=== PATIENT | male | born 1945 | race Caucasian/White ===

== ENCOUNTER → 2019-12-30 | Outpatient (CLI) | payer MEDICARE, OTHER | LOC: CARD 09:00 | PROVIDERS: ATTEND Internal Medicine Cardiovascular Disease | DX: I08.0 Rheumatic disorders of both mitral and aortic valves (principal); I48.0 Paroxysmal atrial fibrillation; E78.2 Mixed hyperlipidemia; E66.9 Obesity, unspecified | CPT/HCPCS: 93225; 93226; 93306 ==

== ENCOUNTER 2020-10-14 08:54 | Emergency (ER) | payer MEDICARE, OTHER ==
[2020-10-14 09:24] LABS: BASOPHILS % (AUTO) 0 % (0-10); EOSINOPHILS % (AUTO) 0 % (0-10); HEMATOCRIT 38 % (40-54); HEMOGLOBIN 12.5 G/DL (13.3-17.7); LYMPHOCYTES % (AUTO) 9 % (12-44); MEAN CORPUSCULAR HEMOGLOBIN 27 PG (25-34); MEAN CORPUSCULAR HGB CONC 33 G/DL (32-36); MEAN CORPUSCULAR VOLUME 83 FL (80-99); MEAN PLATELET VOLUME 9.6 FL (7.4-10.4); MONOCYTES # (AUTO) 1.2 X 10^3 (0.0-1.0); MONOCYTES % (AUTO) 11 % (0-12); NEUTROPHILS # (AUTO) 8.8 X 10^3 (1.8-7.8); NEUTROPHILS % (AUTO) 79 % (42-75); PLATELET COUNT 461 10^3/uL (130-400); WHITE BLOOD COUNT 11.1 10^3/uL (4.3-11.0)
[2020-10-14 09:43] LABS: ALANINE AMINOTRANSFERASE 77 U/L (0-55); ALBUMIN 3.6 GM/DL (3.2-4.5); ALKALINE PHOSPHATASE 175 U/L (40-136); BILIRUBIN,TOTAL 1.2 MG/DL (0.1-1.0); BUN/CREATININE RATIO 21; CARBON DIOXIDE 25 MMOL/L (21-32); CHLORIDE 92 MMOL/L (98-107); CREATININE SERUM 0.97 MG/DL (0.60-1.30); GFR ESTIMATED > 60; GLUCOSE 117 MG/DL (70-105); POTASSIUM 4.7 MMOL/L (3.6-5.0); SODIUM 127 MMOL/L (135-145); TOTAL PROTEIN 6.8 GM/DL (6.4-8.2)
--- NOTE | 2020-10-14 09:55 | Diagnostic Imaging Report ---
EXAMINATION: Chest 1 view HISTORY: Shortness of breath COMPARISON: None available. FINDINGS: Heart is moderately enlarged. Left subclavian pacemaker is present. There are tiny bilateral pleural effusions. No pneumothorax. No edema. IMPRESSION: 1. Mildly enlarged heart with tiny pleural effusions. Dictated by: Dictated on workstation # [id number]
[2020-10-14] MEDS ORDERED: FUROSEMIDE 40 MG/4 ML INJ (LASIX) IVP ONE (10:15)
--- NOTE | 2020-10-14 10:41 | ED Cardiac General ---
History of Present Illness General Chief Complaint: Cardiac/General Problems Stated Complaint: WEAKNESS | SOB Nursing Triage Note: Had a OR in May with 1 stent placed. Had a pacer/icd placed September 27 and had some complications with bleeding. Since having that placed has been weak and short of breath. 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 Symptoms have worsened where he cannot walk more than 10 feet. Source: patient Exam Limitations: no limitations History of Present Illness Date Seen by Provider: Oct 14, 2020 Time Seen by Provider: 09:00 Initial Comments Patient is a 75-year-old male with history of CAD, chronic atrial fibrillation, cardiomyopathy with AICD placement with recent hospitalization for the same who presents with progressive shortness of breath over the past 2 weeks. Patient reports orthopnea and intermittent nocturnal dyspnea. He reports dyspnea with mild exertion. He denies chest pain chest tightness. He does endorse nausea and sweats. Denies abdominal pain or discomfort. Reports increased l fluid retention and bilateral leg swelling. Denies history of CHF. Patient states he is not currently prescribed a diuretic. He has previously been on Xarelto for treatment of A. fib but has had that held since his IACD due to anemia. No history of DVT or PE. No other acute symptoms or complaints. 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 Timing/Duration: 1 week, getting worse Severity: moderate Location: other Activities at Onset: other Prior CP/Workup: other Modifying Factors: improves with other NTG SL INTERNET MERCHANT: No ASA po INTERNET MERCHANT: No Associated Systoms: Nausea/Vomiting, Shortness of Air Allergies and Home Medications Allergies Coded Allergies: No Known Drug Allergies (Unverified , 10/14/20) Patient Home Medication List Home Medication List Reviewed: Yes Review of Systems Review of Systems Constitutional: see HPI EENTM: See HPI Respiratory: See HPI Cardiovascular: See HPI Gastrointestinal: See HPI Genitourinary: See HPI Musculoskeletal: see HPI Skin: see HPI Psychiatric/Neurological: See HPI Endocrine: See HPI Hematologic/Lymphatic: See HPI All Other Systems Reviewed Negative Unless Noted: Yes Past Zqyxhkh-Dhbxzq-Sygxzr Hx Past Med/Social Hx: Reviewed Nursing Past Med/Soc Hx Patient Social History Alcohol Use: Denies Use Smoking Status: Never a Smoker 2nd Hand Smoke Exposure: No Recent Infectious Disease Expo: No Recent Hopitalizations: No Seasonal Allergies Seasonal Allergies: No Past Medical History Surgeries: Yes (icd; hernia; ) Coronary Stent, Orthopedic, Pacemaker, Transurethral Resection Cardiac: Yes Heart Attack, Hypertension Neurological: No Genitourinary: Yes Benign Prostatic Hyperpl Gastrointestinal: Yes (GI bleed ) Musculoskeletal: No Endocrine: No HEENT: No Cancer: No Psychosocial: No Integumentary: No Blood Disorders: No Adverse Reaction/Blood Tranf: No Physical Exam Vital Signs Vital Signs - First Documented 10/14/20 08:59 Temp 36.3 Pulse 101 Resp 18 B/P (MAP) 153/107 (122) Pulse Ox 97 Capillary Refill : Less Than 3 Seconds Height, Weight, BMI Height: '" Weight: lbs. oz. kg; BMI Method: General Appearance: No Apparent Distress, Other (Tachypneic, fatigued and weak appearing.) HEENT: PERRL/EOMI, Pharynx Normal, Moist Mucous Membranes Neck: Full Range of Motion, Non Tender, Supple Respiratory: Chest Non Tender, No Accessory Muscle Use, No Respiratory Distress, Other Cardiovascular: Irregularly Irregular, Other Gastrointestinal: Normal Bowel Sounds, Non Tender, Soft Neurologic/Psychiatric: Alert, Oriented x3 Skin: Normal Color Focused Exam Sepsis Stage: Ruled Out Progress/Results/Core Measures Results/Orders Lab Results Laboratory Tests Test 10/14/20 09:15 Range/Units White Blood Count 11.1 H 4.3-11.0 10^3/uL Red Blood Count 4.56 4.35-5.85 10^6/uL Hemoglobin 12.5 L 13.3-17.7 G/DL Hematocrit 38 L 40-54 % Mean Corpuscular Volume 83 80-99 FL Mean Corpuscular Hemoglobin 27 25-34 PG Mean Corpuscular Hemoglobin Concent 33 32-36 G/DL Red Cell Distribution Width 16.4 H 10.0-14.5 % Platelet Count 461 H 130-400 10^3/uL Mean Platelet Volume 9.6 7.4-10.4 FL Immature Granulocyte % (Auto) 0 % Neutrophils (%) (Auto) 79 H 42-75 % Lymphocytes (%) (Auto) 9 L 12-44 % Monocytes (%) (Auto) 11 0-12 % Eosinophils (%) (Auto) 0 0-10 % Basophils (%) (Auto) 0 0-10 % Neutrophils # (Auto) 8.8 H 1.8-7.8 X 10^3 Lymphocytes # (Auto) 1.0 1.0-4.0 X 10^3 Monocytes # (Auto) 1.2 H 0.0-1.0 X 10^3 Eosinophils # (Auto) 0.0 0.0-0.3 10^3/uL Basophils # (Auto) 0.0 0.0-0.1 10^3/uL Immature Granulocyte # (Auto) 0.0 0.0-0.1 10^3/uL Sodium Level 127 L 135-145 MMOL/L Potassium Level 4.7 3.6-5.0 MMOL/L Chloride Level 92 L 98-107 MMOL/L Carbon Dioxide Level 25 21-32 MMOL/L Anion Gap 10 5-14 MMOL/L Blood Urea Nitrogen 20 H 7-18 MG/DL Creatinine 0.97 0.60-1.30 MG/DL Estimat Glomerular Filtration Rate > 60 BUN/Creatinine Ratio 21 Glucose Level 117 H 70-105 MG/DL Calcium Level 9.0 8.5-10.1 MG/DL Corrected Calcium 9.3 8.5-10.1 MG/DL Total Bilirubin 1.2 H 0.1-1.0 MG/DL Aspartate Amino Transf (AST/SGOT) 64 H 5-34 U/L Alanine Aminotransferase (ALT/SGPT) 77 H 0-55 U/L Alkaline Phosphatase 175 H 40-136 U/L Troponin I < 0.30 <0.30 NG/ML Pro-B-Type Natriuretic Peptide 4663.0 H <75.0 PG/ML Total Protein 6.8 6.4-8.2 GM/DL Albumin 3.6 3.2-4.5 GM/DL My Orders Orders - CLAIRE HENRY DO Cbc With Automated Diff (10/14/20 09:10) Comprehensive Metabolic Panel (10/14/20 09:10) Troponin I Fs (10/14/20 09:10) Probnp Fs (10/14/20 09:10) Chest 1 View Ap/Pa Only (10/14/20 09:10) Ekg-Prn For Chest Pain Or Rhyt (10/14/20 09:10) Furosemide Injection (Lasix Injection) (10/14/20 10:15) Medications Given in ED Current Medications Medications Dose Ordered Sig/Reba Route Start Time Stop Time Status Last Admin Dose Admin Furosemide 40 mg ONCE ONCE IVP 10/14/20 10:15 10/14/20 10:16 DC 10/14/20 10:11 40 MG Vital Signs/I&O 10/14/20 08:59 Temp 36.3 Pulse 101 Resp 18 B/P (MAP) 153/107 (122) Pulse Ox 97 Blood Pressure Mean: 122 Departure Communication (Admissions) EKG: Atrial fibrillation, rate 85, low voltage, QTC, 433. Chest x-ray: Cardiomegaly with pulmonary congestion and trace pleural effusions per radiology report Patient with moderate tachypnea with heart rate in 25-32 range. He is not hypoxic requiring oxygen. EKG, lab and imaging consistent with acute exacerbation of underlying congestive heart failure. Troponin is negative. Patient does not endorse chest pain or anginal equivalent during exam. Lasix given with limited improvement while in the ED. Patient accepted to [facility] per Dr. Chiu at 10:40 AM. Impression Primary Impression: Acute congestive heart failure Additional Impression: Chronic atrial fibrillation Disposition: XFER SHT-TRM HOSP Condition: Stable Transfer Method of Transfer: EMS Departure-Patient Inst. Decision time for Depature: 10:42 Referrals: GOYO BYRNES MD (PCP) Primary Care Physician CLAIRE HENRY DO Oct 14, 2020 10:41
[2020-10-14 11:50] VITALS: BP 130/86
== END 2020-10-14 11:50 | disposition short-term general hospital (02) ==
LOC: EDUNIT# 08:54 → ER FS 08:56
DX: I11.0 Hypertensive heart disease with heart failure (principal); I50.9 Heart failure, unspecified; I48.20 Chronic atrial fibrillation, unspecified; I25.2 Old myocardial infarction; I25.10 Atherosclerotic heart disease of native coronary artery without angina pectoris; Z95.810 Presence of automatic (implantable) cardiac defibrillator
CPT/HCPCS: 36415; 71045; 80053; 83880; 84484; 85025; 93005

== ENCOUNTER → 2022-11-28 | Outpatient (CLI) | payer MEDICARE, OTHER ==
[~2022-11-28] MED LIST: CATHETER FLUSH 10 ML SYR IV PRN; HOLD METFORMIN - RECEIVED CONTRAST 20 ML VIAL IV SCH; IOHEXOL 350 MG/ML 100 ML (OMNIPAQUE 350) VIAL IV ONE; NS 100 ML (IVPB) BAG IV ONE
--- NOTE | 2022-11-28 13:08 | Diagnostic Imaging Report ---
CLINICAL INDICATION: Patient is having left-sided sinus infections. Patient has thrush on tongue and jaw times couple months and is not getting better. Patient reports headache for couple months. EXAMS: 1: CT scan of the neck soft tissue with 75 mL of Omnipaque 350 IV contrast. Sagittal and coronal reformatted images are created. Auto Exposure Controls were utilized during the CT exam to meet ALARA standards for radiation dose reduction. 2: CT scan of the sinuses performed without IV contrast. Sagittal and coronal reformatted images are created. Auto Exposure Controls were utilized during the CT exam to meet ALARA standards for radiation dose reduction. COMPARISON: None. FINDINGS: CT NECK: There is dental streak artifact which obscures portions of the lower cavity and neck soft tissue. There is an area of masslike soft tissue prominence involving the left posterior nasopharynx and lateral wall of the left nasopharyngeal soft tissue. This is best seen on series 3, image [address] scan of the neck. There is effacement of the left lateral recess of the nasopharynx. This mass like area displaces the carotid slightly laterally and abuts the region of the left cervical ICA. There is no significant narrowing of the airway. There is soft tissue thickening involving the left lateral wall of the oropharynx. There is asymmetry, irregularity, and slight thickening of the tongue noted with the left posterior aspect of the tongue prominent than the right. There is no measurable mass. Intrinsic tongue muscles are displaced toward the left. There is no lymphadenopathy. Salivary glands are unremarkable. The neck vascular structures show no significant abnormality. Thyroid gland is unremarkable. Visualized upper lung tanner are clear. Calcifications posterior to the right main bronchus noted. There are cervical spine degenerative spurs seen. CT SINUSES: Frontal sinuses clear. There is minimal mucosal thickening involving the ethmoid sinus. There is minimal mucosal thickening involving left maxillary sinus. The right maxillary sinus is clear. There is minimal mucosal thickening involving the sphenoid sinus anteriorly. Mastoid air cells are clear. There is rebecca bullosa of the left middle nasal turbinate. There is moderate mucosal thickening involving the left inferior nasal turbinate. The nasal septum is tortuous anteriorly. IMPRESSION: CT NECK SOFT TISSUE: 1: There is masslike soft tissue prominence involving the left posterior nasopharynx. Direct visualization is suggested to evaluate for possible neoplasm versus localized swelling. 2: There is no neck lymphadenopathy. 3: There is asymmetry, irregularity, and slight thickening of the tongue noted with the left posterior aspect of the tongue more prominent than the right. There is no measurable mass. Glossitis may be considered. 4: There is mild soft tissue thickening involving the lateral left oropharyngeal wall which may be related to inflammation. This also should be better visualized with direct visualization. CT SINUSES: 1: There is mild paranasal sinus disease. 2: There is moderate mucosal thickening involving the left inferior nasal turbinate. Dictated by: Dictated on workstation # [id number]
== END ==
LOC: LAB FS 10:08
PROVIDERS: ATTEND Otolaryngology Otolaryngology/Facial Plastic Surgery
DX: R79.89 Other specified abnormal findings of blood chemistry (principal)
CPT/HCPCS: 70486

== ENCOUNTER 2022-12-10 05:50 | Outpatient (CLI) | payer MEDICARE, OTHER ==
[~2022-12-10] VITALS: Ht 170.2 cm; Wt 73.6 kg
[2022-12-10] MEDS ORDERED: FAMO20TA3 PO (12:03)
[2022-12-10] MEDS ORDERED: CARV3.12 PO (12:03)
[2022-12-10] MEDS ORDERED: FURO-125 PO (12:03)
[2022-12-10] MEDS ORDERED: LISI10TA25 PO (12:03)
[2022-12-10] MEDS ORDERED: CLOP-31 PO (12:03)
[2022-12-10] MEDS ORDERED: WARF-48 PO (12:03)
[2022-12-10] MEDS ORDERED: PRAV40TA2 PO (12:03)
[2022-12-10] MEDS ORDERED: BUDE10.2 IH (12:03)
== END 2022-12-10 12:05 | disposition home or self-care (01) ==
LOC: PREOP 05:50
PROVIDERS: ATTEND Otolaryngology Otolaryngology/Facial Plastic Surgery
DX: Z01.818 Encounter for other preprocedural examination (principal)

== ENCOUNTER 2022-12-11 07:46 | Day surgery (SDC) | payer MEDICARE, OTHER ==
[~2022-12-11] VITALS: Ht 170.2 cm; Wt 73.6 kg
[2022-12-11] VITALS (10 sets, daily range): BP systolic 121–169; BP diastolic 67–98
[~2022-12-11 07:46] MED LIST changes: +BUDE10.2 IH; +CARV3.12 PO; -CATHETER FLUSH 10 ML SYR IV PRN; +CLOP-31 PO; +FAMO20TA3 PO; +FURO-125 PO; -HOLD METFORMIN - RECEIVED CONTRAST 20 ML VIAL IV SCH; -IOHEXOL 350 MG/ML 100 ML (OMNIPAQUE 350) VIAL IV ONE; +LISI10TA25 PO; -NS 100 ML (IVPB) BAG IV ONE; +PRAV40TA2 PO; +WARF-48 PO
[2022-12-11] MEDS ORDERED: LACTATED RINGERS 1,000 ML IV PRN (08:45)
[2022-12-11] MEDS ORDERED: ONDANSETRON 4 MG/2 ML (SDV) Z0FRAN ONE (10:04)
[2022-12-11] MEDS ORDERED: SEVOFLURANE (ULTANE) 15 ML INHAL SOLN ONE ×2 (10:04→11:32)
[2022-12-11] MEDS ORDERED: LIDOCAINE/EPI 1%-1:100,000 (XYLOCAINE) 20ML ONE (10:04)
[2022-12-11] MEDS ORDERED: proPOfol 200 MG/20 ML (DIPRIVAN) VIAL IV ONE (10:04)
[2022-12-11] MEDS ORDERED: fentaNYL INJ 100 MCG/2 ML AMP ONE (10:04)
[2022-12-11] MEDS ORDERED: LIDOCAINE PF 2% 5 ML (XYLOCAINE) VIAL ONE (10:04)
--- NOTE | 2022-12-11 10:57 | Progress Note-Pre Operative ---
Pre-Operative Progress Note Date of Available H&P: Dec 11, 2022 Date H&P Reviewed: Dec 11, 2022 Time H&P Reviewed: 10:30 History & Physical: H&P Reviewed, Patient Examed, No changes noted Changes from last HP none Pre-Operative Diagnosis: left nasopharyngeal/oropharyngeal mass CARMELA FLYNN MD Dec 11, 2022 10:57
--- NOTE | 2022-12-11 10:58 | Progress Note-Post Operative ---
Post-Operative Progess Note Surgeon (s)/Impregnator Helper (s) Surgeon CARMELA FLYNN MD Impregnator Helper n/a Pre-Operative Diagnosis left nasopharyngeal/oropharyngeal mass Post-Operative Diagnosis same Post-Op Procedure Note Date of Procedure: Dec 11, 2022 Name of Procedure Performed: EUA and Biopsy of Left Nasopharyngeal/Oropharyngeal Mass Description & Findings Description and Findings: n/a Anesthesia Type get Estimated Blood Loss minimal Packing none. Specimen(s) collected/removed left nasopharyngeal/oropharyngeal biopsies CARMELA FLYNN MD Dec 11, 2022 10:58
[2022-12-11] MEDS ORDERED: HYDROcodone/APAP 5 MG/325 MG (LORTAB) TAB PO PRN (11:00)
[2022-12-11] MEDS ORDERED: LIDOCAINE 2% VISCOUS 15 ML UDC PO PRN (11:00)
[2022-12-11] MEDS ORDERED: APAP 325 MG/10.15 ML LIQ (TYLENOL) UDC PO PRN (11:00)
[2022-12-11] MEDS ORDERED: NS IV 1000 ML 1,000 ML IV SCH (11:00)
[2022-12-11] MEDS ORDERED: LIDOCAINE/EPI 1%-1:100,000 (XYLOCAINE) 20ML INJ ONE (11:11)
[2022-12-11] MEDS ORDERED: SUGAMMADEX 500 MG/5 ML VIAL (BRIDION) IV ONE (11:31)
[2022-12-11] MEDS ORDERED: ROCURONIUM 50 MG/5 ML (ZEMURON) VIAL IV ONE (11:32)
[2022-12-11] MEDS ORDERED: HYDROmorphone 2 MG/ML VIAL (DILAUDID) IV ONE (11:45)
[2022-12-11] MEDS ORDERED: ONDANSETRON 4 MG/2 ML (SDV) Z0FRAN IVP PRN (11:45)
[2022-12-11 12:23] LABS: BASOPHILS # (AUTO) 0.1 10^3/uL (0.0-0.1); BASOPHILS % (AUTO) 1 % (0-10); EOSINOPHILS # (AUTO) 0.2 10^3/uL (0.0-0.3); EOSINOPHILS % (AUTO) 4 % (0-10); HEMATOCRIT 40 % (40-54); HEMOGLOBIN 13.3 g/dL (13.3-17.7); LYMPHOCYTES # (AUTO) 1.3 10^3/uL (1.0-4.0); LYMPHOCYTES % (AUTO) 22 % (12-44); MEAN CORPUSCULAR HEMOGLOBIN 30 pg (25-34); MEAN CORPUSCULAR HGB CONC 33 g/dL (32-36); MEAN CORPUSCULAR VOLUME 92 fL (80-99); MEAN PLATELET VOLUME 10.5 fL (9.0-12.2); MONOCYTES # (AUTO) 0.7 10^3/uL (0.0-1.0); MONOCYTES % (AUTO) 12 % (0-12); NEUTROPHILS # (AUTO) 3.5 10^3/uL (1.8-7.8); NEUTROPHILS % (AUTO) 60 % (42-75); PLATELET COUNT 198 10^3/uL (130-400); WHITE BLOOD COUNT 5.8 10^3/uL (4.3-11.0)
== END 2022-12-11 14:25 ==
LOC: SDC 07:46
PROVIDERS: ATTEND Otolaryngology Otolaryngology/Facial Plastic Surgery
DX: C10.9 Malignant neoplasm of oropharynx, unspecified (principal); J31.1 Chronic nasopharyngitis; R51.9 Headache, unspecified; Z79.01 Long term (current) use of anticoagulants
CPT/HCPCS: 36415; 85025; 87081; 93005

== ENCOUNTER → 2022-12-25 | Outpatient (CLI) | payer MEDICARE, OTHER ==
[~2022-12-25] MED LIST changes: +APIX5TAB PO; +CATHETER FLUSH 10 ML SYR IVP PRN; +POTA-330 PO
--- NOTE | 2022-12-26 14:42 | Diagnostic Imaging Report ---
INDICATION: Initial staging oropharyngeal carcinoma. Serum blood glucose level at the time of injection is 77 mg/dL. Patient was administered 9.7 mCi F-18 FDG intravenously in the left antecubital location and PET imaging was performed from the top of skull to mid thighs. Noncontrast CT was also performed for attenuation correction and anatomic correlation. Comparison is made with conventional CT soft tissue neck study on 11/28/2022. No prior PET/CT studies available for comparison. There is symmetric activity throughout the brain. Abnormal hypermetabolism is identified lateral to the oropharynx, correlating with the area of soft tissue density noted on recent CT neck study. This area demonstrates SUV max of 14.4. No definite hypermetabolic cervical lymphadenopathy is identified. No mediastinal or hilar hypermetabolism is identified. No pulmonary parenchymal hypermetabolism is identified. Physiologic activity throughout the gastrointestinal and genitourinary tract is noted. No suspicious areas of hypermetabolism in the abdomen or pelvis is identified. IMPRESSION: Abnormal hypermetabolic activity within abnormal area of soft tissue along the lateral left oropharynx and parapharyngeal soft tissues consistent with patient's known malignancy. No hypermetabolic lymphadenopathy is seen to suggest metastatic disease. Dictated by: Dictated on workstation # [id number]
== END ==
LOC: RAD 11:58
PROVIDERS: ATTEND Radiology Radiation Oncology
DX: C10.9 Malignant neoplasm of oropharynx, unspecified (principal)
CPT/HCPCS: 78815; 82947; A9552

== ENCOUNTER 2022-12-29 05:30 | Outpatient (CLI) | payer MEDICARE, OTHER ==
[~2022-12-29] VITALS: Ht 170.2 cm; Wt 75.3 kg
[~2022-12-29 05:30] MED LIST changes: -APIX5TAB PO; -CATHETER FLUSH 10 ML SYR IVP PRN; -POTA-330 PO
[2022-12-29] MEDS ORDERED: APIX5TAB PO (13:11)
[2022-12-29] MEDS ORDERED: POTA-330 PO (13:11)
== END 2022-12-29 13:41 | disposition home or self-care (01) ==
LOC: PREOP 05:30
PROVIDERS: ATTEND Surgery
DX: Z01.818 Encounter for other preprocedural examination (principal)

== ENCOUNTER 2023-01-01 08:17 | Day surgery (SDC) | payer MEDICARE, OTHER ==
[~2023-01-01] VITALS: Ht 170.2 cm; Wt 75.3 kg
[~2023-01-01 08:17] MED LIST changes: +APIX5TAB PO; +POTA-330 PO
[2023-01-01] MEDS ORDERED: ceFAZolin INJECTION 2,000 MG ONE (08:26)
[2023-01-01] MEDS ORDERED: NS (IVPB) 50 ML ONE (08:26)
[2023-01-01] MEDS ORDERED: ceFAZolin INJECTION 2,000 MG in NS (IVPB) 50 ML IV ONE (08:30)
[2023-01-01] MEDS ORDERED: LACTATED RINGERS 1,000 ML IV PRN (08:30)
[2023-01-01 08:54] VITALS: BP 117/75
[2023-01-01] MEDS ORDERED: PROPOFOL INJECTION 50 ML IV ONE (09:46)
[2023-01-01] MEDS ORDERED: HEParin (CENTRAL IV FLUSH) 500 UNIT/5 ML SYR ONE (09:51)
[2023-01-01] MEDS ORDERED: LIDOCAINE/EPI 1%-1:100,000 (XYLOCAINE) 20ML ONE (09:51)
[2023-01-01] MEDS ORDERED: 0.9% SODIUM CHLORIDE PF INJ 20 ML VIAL ONE (09:51)
--- NOTE | 2023-01-01 09:53 | Progress Note-Pre Operative ---
Pre-Operative Progress Note Date H&P Reviewed: Jan 01, 2023 Time H&P Reviewed: 09:53 History & Physical: H&P Reviewed, Patient Examed, No changes noted Pre-Operative Diagnosis: tonsil cancer REMA RUSH DO Jan 01, 2023 09:53
[2023-01-01] MEDS ORDERED: LIDOCAINE/EPI 1%-1:100,000 (XYLOCAINE) 20ML INJ ONE (10:35)
[2023-01-01] MEDS ORDERED: 0.9% SODIUM CHLORIDE PF INJ 20 ML VIAL IV ONE (10:36)
[2023-01-01] MEDS ORDERED: HEParin (CENTRAL IV FLUSH) 500 UNIT/5 ML SYR IV ONE (10:37)
[2023-01-01 11:12] VITALS: BP 115/73
--- NOTE | 2023-01-01 11:17 | Discharge Inst-Simple/Standard ---
Discharge Inst-Standard Patient Instructions/Follow Up Plan of Care/Instructions/FU: 2 weeks Osmar Activity as Tolerated: No Discharge Diet: Regular Diet Other Inst to Patient Follow up Appt: Make appointment for 2 week. Instructions: No lifting greater than 10 pounds. No strenuous activity. May shower in 24 hours, no tub bath or soaking. Use incentive spirometer at home as directed. No Smoking FLUSH GASTROSTOMY TUBE TWICE A DAY WITH WATER AND AFTER USE. Skin/Wound Care: You have special glue over your incision that will fall off on it's own. Rotate gastrostomy tube bolster 3 times a day to change pressure points on skin. Change bandages daily and as needed on gastrostomy tube. Symptoms to Report: Appetite Changes, Extremity Discoloration, Numbness/Tingling, Swelling Increased, Bleeding Excessive, Eyesight Changes, Pain Increased, Urine Color Change, Constipation(Persistent), Fever over 101 degree F, Pain/Pressure in chest, Urinating Difficulty, Cough Up/Vomit Blood, Heart Beat Irreg/Pounding, Pain/Pressure in jaw, Vaginal Bleeding Increase, Cramps in feet or legs, Lightheadedness, Pain/Pressure in shoulder, Diarrhea(Persistent), Memory Changes Suddenly, Questions/Concerns, Weight gain consecutive days, Dizziness/Fainting, Nausea/Vomiting, Shortness of Breath, Weight gain over 2 pounds If questions or concerns contact your physician Or seek help at emergency department. REMA RUSH DO Jan 01, 2023 11:17
[2023-01-01 11:20] VITALS: BP 119/73
--- NOTE | 2023-01-01 11:20 | Anesthesia-General Post-Op ---
MAC Patient Condition Mental Status/LOC: Same as Preop Cardiovascular: Satisfactory Nausea/Vomiting: Absent Respiratory: Satisfactory Pain: Controlled Complications: Absent Post Op Complications Complications None Follow Up Care/Instructions Patient Instructions None needed. Anesthesiology Discharge Order Discharge Order Patient is doing well, no complaints, stable vital signs, no apparent adverse anesthesia problems. No complications reported per nursing. LUIS M BARBER CRNA Jan 01, 2023 11:20
--- NOTE | 2023-01-01 11:25 | Progress Note-Post Operative ---
Post-Operative Progess Note Surgeon (s)/Junior Marketing Associate (s) Surgeon REMA RUSH DO Junior Marketing Associate: na Pre-Operative Diagnosis tonsil cancer Post-Operative Diagnosis same Procedure & Operative Findings Date of Procedure 01/01/23 Procedure Performed/Findings u/s guided right IJ port placement, EGD and percutaneous gastrostomy tube placement Anesthesia Type mac c local Estimated Blood Loss Estimated blood loss (mL): minimal Specimens/Packing Specimens Removed none REMA RUSH DO Jan 01, 2023 11:25
[2023-01-01 11:30] VITALS: BP 93/61
[2023-01-01] MEDS ORDERED: ONDANSETRON 4 MG/2 ML (SDV) Z0FRAN IVP PRN (11:30)
--- NOTE | 2023-01-01 11:32 | Diagnostic Imaging Report ---
EXAMINATION: Chest, one view. HISTORY: Port placement. COMPARISON: 10/14/2020. FINDINGS: Heart size and pulmonary vasculature are normal. Mild interstitial opacities within the upper lobes bilaterally. No pleural effusion or pneumothorax. A right-sided port catheter is present with the tip projecting over the distal SVC. The osseous structures are intact. IMPRESSION: 1. Right-sided port catheter placement with the tip projecting over the SVC. No pneumothorax. 2. Mild interstitial opacities within the upper lungs, which could be seen with atelectasis, edema, or pneumonia. Dictated by: Dictated on workstation # [id number]
[2023-01-01 11:40] VITALS: BP 127/89
[2023-01-01 11:45] VITALS: BP_SYST 127; BP_SYST 137; BP_DIAS 88; BP_DIAS 89
[2023-01-01] MEDS ORDERED: HYDROcodone/APAP 5 MG/325 MG (LORTAB) TAB PO ONE (12:30)
[2023-01-01] MEDS ORDERED: HYDROcodone/APAP 5 MG/325 MG (LORTAB) TAB ONE (12:37)
--- NOTE | 2023-01-01 17:00 | Diagnostic Imaging Report ---
INDICATION: Port placement COMPARISON: None available. IMPRESSION: Spot image placement of right IJ Port-A-Cath with tip terminating in the lower SVC. Air Kerma is 1.50 mGy. Please see procedure report for more details. Dictated by: Dictated on workstation # [id number]
--- NOTE | 2023-01-02 12:29 | OPERATIVE REPORT ---
DATE OF SERVICE: 01/01/2023 PREOPERATIVE DIAGNOSIS: Tonsil cancer. POSTOPERATIVE DIAGNOSIS: Tonsil cancer. PROCEDURE: Ultrasound-guided right internal jugular vein port placement, esophagogastroduodenoscopy and percutaneous gastrostomy tube placement. SURGEON: Rema Prasad DO ANESTHESIA: MAC with local. ESTIMATED BLOOD LOSS: Minimal. COMPLICATIONS: None. INDICATIONS: The patient is a 77-year-old male with tonsil cancer. He is needing a port and PEG for further management and treatment. He understands risks and benefits of procedure and wished to proceed. Consent was signed in chart. DESCRIPTION OF PROCEDURE: The patient was taken to the operating suite, prepped and draped in sterile fashion. Timeout was performed. Local anesthetic was infiltrated in the right neck. Under ultrasound guidance above the right internal jugular vein, micro access needle was then used to access the right internal jugular vein under ultrasound guidance. Dark nonpulsatile blood was withdrawn. The [ ] was inserted through the needle and the needle was removed. Fluoroscopy assured proper placement. An 11 blade scalpel was used to make a small skin incision at the wire insertion site. Dilator was then advanced over the wire and the wire was removed. The normal wire was inserted through the sheath and the sheath was then removed. Fluoroscopy again showed proper placement. The wire was then secured. A pocket was then created on the right chest. After injecting local anesthetic, a #15 blade scalpel was used to make a small skin incision. A blunt dissection was used to create the pocket. Over the guidewire under fluoroscopy, the dilator sheath was then advanced over the wire. The wire was removed along with the dilator. The Groshong catheter was inserted through the sheath and the sheath was then removed. The catheter was then tunneled from the insertion point down to the pocket created on the right chest. Fluoroscopy was used to cut the catheter to length and the catheter was then secured to the port with scope was then placed in the pocket and then accessed without difficulty, blood was withdrawn. It was then flushed with saline and then the port was then flushed with heparin. Fluoroscopy assured proper placement. The subcutaneous tissues were then reapproximated using 3-0 Vicryl. Skin was then closed using skin Affix at the incision site of the pocket and also the insertion point [ ]. At this point, the patient was prepared for EGD, percutaneous endoscopic gastrostomy tube placement. The scope was inserted into the mouth, down the esophagus, stomach and into the duodenum without difficulty. There were no polyps, masses or ulcerations within the duodenum. Scope was slowly retracted back into stomach where it was further insufflated. The abdomen was then visualized [ ] was able to be visualized within the stomach on the scope. The [ ] we made. The abdomen was then prepped and draped in sterile fashion. Local anesthetic was infiltrated and inserted through the abdominal wall and visualized in the stomach. An 11 blade scalpel was used to make a small skin incision. The Angiocath needle was inserted through the abdominal wall into the stomach, which was then able to be snared. The needle was removed and the catheter remained. The guidewire was inserted through the sheath and this was then snared and brought out through the mouth. The gastrostomy tube was then attached to it in the usual fashion. The guidewire was then slowly removed, pulling the gastrostomy tube into the proper position. The bolster was placed at approximately 4 cm. The tube was cut to length and the area was washed and dried and sterile bandage was applied. Scope was then reinserted into the stomach, visualizing the gastrostomy tube in good position. The scope was then slowly retracted back until completely removed. The patient tolerated the procedure well with no complications, taken to recovery room in stable condition. Chest x-ray pending for the port placement. Job ID: [id number] DocumentID: [id number] Dictated Date: 01/01/2023 23:21:30 Sort Operations Supervisor Date: 01/02/2023 04:05:00 Dictated By: REMA PRASAD DO
== END 2023-01-01 12:50 | disposition home or self-care (01) ==
LOC: SDC 08:17
PROVIDERS: ATTEND Surgery
DX: C09.1 Malignant neoplasm of tonsillar pillar (anterior) (posterior) (principal); Z79.02 Long term (current) use of antithrombotics/antiplatelets; Z79.01 Long term (current) use of anticoagulants; Z95.5 Presence of coronary angioplasty implant and graft
CPT/HCPCS: 36561; 43246; 71045; 76000; 87081; C1788

== ENCOUNTER 2023-01-08 13:33 | Outpatient (RCR) | payer MEDICARE, OTHER | END 2023-01-09 | disposition home or self-care (01) | LOC: ONC 13:33 | PROVIDERS: ATTEND Radiology Radiation Oncology | DX: Z51.0 Encounter for antineoplastic radiation therapy (principal); C09.1 Malignant neoplasm of tonsillar pillar (anterior) (posterior); I10 Essential (primary) hypertension; E78.2 Mixed hyperlipidemia; I48.0 Paroxysmal atrial fibrillation; Z79.01 Long term (current) use of anticoagulants; Z79.02 Long term (current) use of antithrombotics/antiplatelets | CPT/HCPCS: 77300; 77301; 77334; 77338; G0463; 77386; 77470; 99205 ==

== ENCOUNTER → 2023-02-09 | Outpatient (RCR) | payer MEDICARE, OTHER | END | disposition home or self-care (01) | LOC: ONC 01-12 09:44 | PROVIDERS: ATTEND Radiology Radiation Oncology | DX: Z51.0 Encounter for antineoplastic radiation therapy (principal); C10.2 Malignant neoplasm of lateral wall of oropharynx; I10 Essential (primary) hypertension; E78.2 Mixed hyperlipidemia; I48.0 Paroxysmal atrial fibrillation; I25.10 Atherosclerotic heart disease of native coronary artery without angina pectoris; Z79.01 Long term (current) use of anticoagulants; Z79.02 Long term (current) use of antithrombotics/antiplatelets | CPT/HCPCS: 77386; G0463; 77336 ==

== ENCOUNTER 2023-03-03 10:06 | Outpatient (RCR) | payer MEDICARE, OTHER ==
[~2023-03-03 10:06] MED LIST changes: +FAMO-356 PO; -FAMO20TA3 PO
== END 2023-03-12 | disposition home or self-care (01) ==
LOC: ONC 10:06
PROVIDERS: ATTEND Radiology Radiation Oncology
DX: Z51.0 Encounter for antineoplastic radiation therapy (principal); C09.1 Malignant neoplasm of tonsillar pillar (anterior) (posterior); I10 Essential (primary) hypertension; E78.2 Mixed hyperlipidemia; I48.0 Paroxysmal atrial fibrillation; I25.10 Atherosclerotic heart disease of native coronary artery without angina pectoris; Z79.01 Long term (current) use of anticoagulants; Z79.02 Long term (current) use of antithrombotics/antiplatelets
CPT/HCPCS: 77386; G0463; 77336

== ENCOUNTER → 2023-06-18 | Outpatient (CLI) | payer MEDICARE, OTHER ==
[~2023-06-18] VITALS: Ht 170.2 cm; Wt 70.9 kg
== END | disposition home or self-care (01) ==
LOC: PREOP 05:39
PROVIDERS: ATTEND Surgery
DX: Z01.818 Encounter for other preprocedural examination (principal)